=== PATIENT | female | born 1960 | race Two or more races ===

== ENCOUNTER 2018-10-18 08:10 | Inpatient (IN) | payer MEDICAID, OTHER ==
[~2018-10-18] VITALS: Ht 162.6 cm; Wt 74.8 kg
[2018-10-18] MEDS ORDERED: ONDANSETRON HCL 4MG/2ML INJ IV STA ×2 (10:34→13:29)
[2018-10-18] MEDS ORDERED: MORPHINE SULFATE 4 MG/ML CPJ (NOT FOR IM USE) IV STA ×2 (10:34→16:18)
[2018-10-18 11:31] LABS: BASOPHILS % 0.3 % (0.0-2.0); EOSINOPHILS % 0.1 % (0.0-5.0); HEMOGLOBIN. 13.4 g/dL (12.0-16.0); LYMPHOCYTES % 8.5 % (20.0-50.0); MEAN CORPUSCULAR VOLUME 85.5 fL (81.0-99.0); MEAN PLATELET VOLUME 10.1 fl (7.4-10.4); MONOCYTES % 2.4 % (2.0-8.0); NEUTROPHILS % 88.7 % (40.0-76.0); PLATELET 220 x1000/uL (130-400); RED CELL DISTRIBUTION WIDTH 13.6 % (11.6-14.6)
[2018-10-18 11:37] LABS: CHLORIDE 103 mEq/L (98-107)
[2018-10-18] MEDS ORDERED: IOHEXOL-300 100 ML BOTTLE ONE (12:36)
[2018-10-18] MEDS ORDERED: SODIUM CHLORIDE 0.9% 1,000 ML IV ONE (13:31)
[2018-10-18] MEDS ORDERED: FAMOTIDINE 20MG/2ML VIAL IV ONE (13:45)
[2018-10-18 14:35] LABS: CLARITY URINE CLEAR (CLEAR); COLOR URINE YELLOW (YELLOW); KETONES URINE 2+ (NEGATIVE); LEUKOCYTE ESTERASE URINE NEGATIVE (NEGATIVE); NITRITE URINE NEGATIVE (NEGATIVE); OCCULT BLOOD URINE 1+ (NEGATIVE); PROTEIN URINE NEGATIVE (NEGATIVE); SPECIFIC GRAVITY URINE 1.044 (1.005-1.030); UROBILINOGEN URINE 0.2 E.U./dL (0.2-1.0)
[2018-10-18] MEDS ORDERED: CLONIDINE 0.1MG TABLET PO PRN (21:15)
[2018-10-18] MEDS ORDERED: ONDANSETRON HCL 4MG/2ML INJ IV PRN (21:15)
[2018-10-18] MEDS ORDERED: DEXTROSE 50% WATER 50ML SYRINGE IV PRN (21:15)
[2018-10-18] MEDS ORDERED: ACETAMINOPHEN 325MG TABLET PO PRN (21:15)
[2018-10-18] MEDS: SODIUM CHLORIDE 0.9% 1,000 ML IV SCH (21:42)
[2018-10-19] MEDS: KETOROLAC 30MG/ML VIAL IV PRN ×4 (02:00→22:29)
[2018-10-19 06:00] LABS: BASOPHILS % 0.6 % (0.0-2.0); EOSINOPHILS % 0.9 % (0.0-5.0); HEMOGLOBIN. 12.2 g/dL (12.0-16.0); MEAN CORPUSCULAR HEMOGLOBIN 28.4 pg (28.0-32.0); MEAN CORPUSCULAR VOLUME 86.1 fL (81.0-99.0); MEAN PLATELET VOLUME 9.9 fl (7.4-10.4); MONOCYTES % 5.9 % (2.0-8.0); NEUTROPHILS % 69.6 % (40.0-76.0); PLATELET 172 x1000/uL (130-400); RED CELL DISTRIBUTION WIDTH 13.6 % (11.6-14.6)
[2018-10-19 06:06] LABS: CHLORIDE 106 mEq/L (98-107)
[2018-10-19] MEDS: LORAZEPAM 2MG/ML CPJ IV PRN (06:10)
[2018-10-19 08:00] VITALS: BP 161/68
[2018-10-19] MEDS: INSULIN LISPRO 100 UNITS/ML SUBCUT SCH ×4 (08:17→21:00)
[2018-10-19] MEDS: BLOOD SUGAR DIAGNOSTIC STRIP TEST SCH ×4 (08:17→21:00)
[2018-10-19] MEDS ORDERED: OMEP40CA34 MT (08:40)
[2018-10-19] MEDS ORDERED: LUBI8CAP MT (08:40)
[2018-10-19] MEDS: PANTOPRAZOLE SODIUM 40 MG/VIAL IV SCH (09:22)
[2018-10-19 11:27] VITALS: BP 161/68
[2018-10-19 12:00] VITALS: BP 134/59
[2018-10-19] MEDS: SODIUM CHLORIDE 0.9% 1,000 ML IV SCH (13:29)
[2018-10-19] MEDS ORDERED: DICYCLOMINE HCL 10MG/ML 2ML AMP IM NR (14:00)
[2018-10-19 16:00] VITALS: BP 129/70
[2018-10-19 20:00] VITALS: BP 119/62
[2018-10-19] MEDS ORDERED: TEMAZEPAM 15MG CAPSULE PO PRN (21:00)
[2018-10-20] VITALS: BP 129/50
[2018-10-20 04:00] VITALS: BP 135/63
[2018-10-20] MEDS: SODIUM CHLORIDE 0.9% 1,000 ML IV SCH ×2 (04:05→13:20)
[2018-10-20] MEDS: KETOROLAC 30MG/ML VIAL IV PRN ×2 (04:06→11:34)
[2018-10-20] MEDS: BLOOD SUGAR DIAGNOSTIC STRIP TEST SCH ×3 (06:50→17:08)
[2018-10-20] MEDS: INSULIN LISPRO 100 UNITS/ML SUBCUT SCH ×3 (06:50→17:02)
[2018-10-20 08:00] VITALS: BP 164/72
[2018-10-20] MEDS: LORAZEPAM 2MG/ML CPJ IV PRN ×2 (08:51→14:49)
[2018-10-20] MEDS: PANTOPRAZOLE SODIUM 40 MG/VIAL IV SCH (08:51)
[2018-10-20 12:00] VITALS: BP 143/58
[2018-10-20 15:24] VITALS: BP 144/63
[2018-10-20 16:00] VITALS: BP 147/65
[2018-10-21] MEDS ORDERED: FAMOTIDINE 20MG/2ML VIAL IV SCH (09:00)
[2018-10-21 15:06] LABS: ANTI-MYELOPEROXIDASE AB < 9.0 U/mL (0.0-9.0); ANTI-PROTEINASE 3 ABS < 3.5 U/mL (0.0-3.5)
[2018-10-23 13:06] LABS: ATYPICAL P-ANCA <1:20 titer (Neg:<1:20); CYTOPLASMIC C-ANCA <1:20 titer (Neg:<1:20); PERINUCLEAR P-ANCA <1:20 titer (Neg:<1:20)
== END 2018-10-20 18:10 | disposition home or self-care (01) | DRG 254 ==
LOC: ER 08:38 → 6EST 14:40 → EDBEDREQ 14:47 → ENRESERV 10-19 07:18
PROVIDERS: ADMIT Internal Medicine; ATTEND Internal Medicine
DX: K58.0 Irritable bowel syndrome with diarrhea (principal); R65.10 Systemic inflammatory response syndrome (SIRS) of non-infectious origin without acute organ dysfunction; E11.65 Type 2 diabetes mellitus with hyperglycemia; E87.1 Hypo-osmolality and hyponatremia; K83.8 Other specified diseases of biliary tract; E86.0 Dehydration; I10 Essential (primary) hypertension; Z72.0 Tobacco use; I25.2 Old myocardial infarction; Z90.49 Acquired absence of other specified parts of digestive tract; Z98.51 Tubal ligation status; Z98.49 Cataract extraction status, unspecified eye
CPT/HCPCS: 36415; 71045; 74177; 74181; 82962; 83036; 83520; 83880; 84484; 86256; 93005; 93970; 96374; 96375; 99285; C9113; J0500; J1815; J1885; J2060; J2270; J2405; J3490; Q9967

== ENCOUNTER 2018-11-03 05:09 | Emergency (ER) | payer MEDICAID ==
[~2018-11-03] VITALS: Ht 162.6 cm; Wt 69.0 kg
[~2018-11-03 05:09] MED LIST: LUBI8CAP MT; OMEP40CA34 MT
[2018-11-03] MEDS ORDERED: SODIUM CHLORIDE 0.9% 1,000 ML IV ONE (06:29)
[2018-11-03] MEDS ORDERED: ONDANSETRON HCL 4MG/2ML INJ IV STA (06:29)
[2018-11-03] MEDS ORDERED: MORPHINE SULFATE 4 MG/ML CPJ (NOT FOR IM USE) IV STA (06:29)
[2018-11-03] MEDS ORDERED: LORAZEPAM 2MG/ML CPJ IV ONE ×2 (06:30→08:45)
[2018-11-03] MEDS ORDERED: FAMOTIDINE 20MG/2ML VIAL IV ONE (06:30)
[2018-11-03 07:30] LABS: BASOPHILS % 0.6 % (0.0-2.0); EOSINOPHILS % 0.3 % (0.0-5.0); HEMATOCRIT. 41.1 % (36.0-48.0); HEMOGLOBIN. 13.6 g/dL (12.0-16.0); LYMPHOCYTES % 9.2 % (20.0-50.0); MEAN CORPUSCULAR HEMOGLOBIN 28.6 pg (28.0-32.0); MEAN CORPUSCULAR VOLUME 86.4 fL (81.0-99.0); MEAN PLATELET VOLUME 9.7 fl (7.4-10.4); MONOCYTES % 2.8 % (2.0-8.0); NEUTROPHILS % 87.1 % (40.0-76.0); PLATELET 216 x1000/uL (130-400); RED BLOOD CELL COUNT 4.76 mill/uL (4.2-5.4); RED CELL DISTRIBUTION WIDTH 13.8 % (11.6-14.6)
[2018-11-03 07:34] LABS: CHLORIDE 101 mEq/L (98-107)
[2018-11-03 07:35] LABS: PROTHROMBIN TIME 9.8 sec (9.1-11.1)
[2018-11-03] MEDS ORDERED: KETOROLAC 30MG/ML VIAL IV ONE (08:45)
[2018-11-03 09:42] LABS: CLARITY URINE CLEAR (CLEAR); COLOR URINE YELLOW (YELLOW); KETONES URINE 1+ (NEGATIVE); LEUKOCYTE ESTERASE URINE NEGATIVE (NEGATIVE); NITRITE URINE NEGATIVE (NEGATIVE); OCCULT BLOOD URINE TRACE (NEGATIVE); PROTEIN URINE NEGATIVE (NEGATIVE); UROBILINOGEN URINE 0.2 E.U./dL (0.2-1.0)
[2018-11-03 11:04] LABS: BG BASE EXCESS -0.9 mmol/L (-2.0-2.0); BG CARBOXYHEMOGLOBIN 0.8 % (0.5-1.5); BG DEOXYHEMOGLOBIN 1.6 % (0.0-5.0); BG FRACTION INSPIRED OXYGEN 28; BG HCO3 ACT 22.2 mmol/L (22.0-26.0); BG METHEMOGLOBIN 0.3 % (0.0-1.5); BG OXYGEN SATURATION 98.4 % (92.0-98.5); BG OXYHEMOGLOBIN 97.3 % (94.0-97.0); BG PCO2 31.7 mmHg (35.0-45.0); BG PH 7.463 (7.350-7.450); BG PO2 128.5 mmHg (75.0-100.0); BG SAMPLE SITE RIGHT BRACHIAL; BG TOTAL HEMOGLOBIN 11.9 g/dL (12.0-18.0); BG VENT MODE NASAL CANNULA
[2018-11-03 13:00] VITALS: BP 145/85
[2019-01-07] MEDS ORDERED: MORPHINE SULFATE 4 MG/ML CPJ (NOT FOR IM USE) IV STA (08:03)
[2019-01-07] MEDS ORDERED: ONDANSETRON HCL 4MG/2ML INJ IV STA (08:03)
[2019-01-07] MEDS ORDERED: SODIUM CHLORIDE 0.9% 1,000 ML IV ONE (08:03)
== END 2018-11-03 13:31 | disposition home or self-care (01) ==
LOC: ER 05:09
DX: R10.9 Unspecified abdominal pain (principal); R11.2 Nausea with vomiting, unspecified; E11.9 Type 2 diabetes mellitus without complications; I10 Essential (primary) hypertension; F17.200 Nicotine dependence, unspecified, uncomplicated; Z87.19 Personal history of other diseases of the digestive system; Z88.0 Allergy status to penicillin; Z79.899 Other long term (current) drug therapy
CPT/HCPCS: 36415; 36600; 71045; 74176; 80053; 81003; 82375; 82805; 83690; 84484; 85025; 85610; 93005; 96361; 96374; 96375; 96376; 99284; J1885; J2060; J2270; J2405; J3490; J7030; Z7610

== ENCOUNTER 2019-01-07 07:15 | Inpatient (IN) | payer MEDICAID ==
[~2019-01-07] VITALS: Ht 157.5 cm; Wt 70.3 kg
[2019-01-07] MEDS ORDERED: ONDANSETRON HCL 4MG/2ML INJ IV STA (08:06)
[2019-01-07] MEDS ORDERED: MORPHINE SULFATE 4 MG/ML CPJ (NOT FOR IM USE) IV STA (08:06)
[2019-01-07] MEDS ORDERED: SODIUM CHLORIDE 0.9% 1,000 ML IV ONE (08:06)
[2019-01-07] MEDS ORDERED: KETOROLAC 30MG/ML VIAL IV STA (08:06)
[2019-01-07 08:34] LABS: BASOPHILS % 0.8 % (0.0-2.0); EOSINOPHILS % 0.4 % (0.0-5.0); HEMATOCRIT. 40.1 % (36.0-48.0); HEMOGLOBIN. 13.3 g/dL (12.0-16.0); LYMPHOCYTES % 10.8 % (20.0-50.0); MEAN CORPUSCULAR HEMOGLOBIN 28.5 pg (28.0-32.0); MEAN PLATELET VOLUME 9.9 fl (7.4-10.4); MONOCYTES % 2.5 % (2.0-8.0); NEUTROPHILS % 85.5 % (40.0-76.0); PLATELET 183 x1000/uL (130-400); RED BLOOD CELL COUNT 4.67 mill/uL (4.2-5.4); RED CELL DISTRIBUTION WIDTH 13.8 % (11.6-14.6)
[2019-01-07 08:41] LABS: CHLORIDE 104 mEq/L (98-107)
[2019-01-07 10:09] LABS: CLARITY URINE CLEAR (CLEAR); COLOR URINE YELLOW (YELLOW); KETONES URINE 1+ (NEGATIVE); LEUKOCYTE ESTERASE URINE NEGATIVE (NEGATIVE); NITRITE URINE NEGATIVE (NEGATIVE); OCCULT BLOOD URINE TRACE (NEGATIVE); PROTEIN URINE NEGATIVE (NEGATIVE); SPECIFIC GRAVITY URINE 1.015 (1.005-1.030); UROBILINOGEN URINE 0.2 E.U./dL (0.2-1.0)
[2019-01-07] MEDS ORDERED: METOCLOPRAMIDE HCL 10MG/2ML VIAL IV ONE (13:00)
[2019-01-07] MEDS ORDERED: FENTANYL CITRATE/PF 50MCG/ML 2ML VIAL IV ONE (13:00)
[2019-01-07] MEDS ORDERED: ACETAMINOPHEN 325MG TABLET PO PRN ×2 (16:45)
[2019-01-07] MEDS ORDERED: DEXTROSE 50% WATER 50ML SYRINGE IV PRN (16:45)
[2019-01-07] MEDS ORDERED: ONDANSETRON HCL 4MG/2ML INJ IV PRN (16:45)
[2019-01-07] MEDS ORDERED: CLONIDINE 0.1MG TABLET PO PRN (16:45)
[2019-01-07] MEDS: KETOROLAC 30MG/ML VIAL IV PRN (17:38)
[2019-01-07 20:00] VITALS: BP_SYST 122; BP_SYST 154; BP_DIAS 66; BP_DIAS 78
[2019-01-07] MEDS: BLOOD SUGAR DIAGNOSTIC STRIP TEST SCH (21:00)
[2019-01-07] MEDS: METOCLOPRAMIDE HCL 10MG/2ML VIAL IV SCH (21:07)
[2019-01-07] MEDS: INSULIN LISPRO 100 UNITS/ML SUBCUT SCH (21:37)
[2019-01-08] VITALS: BP 108/58
[2019-01-08] MEDS: KETOROLAC 30MG/ML VIAL IV PRN (00:42)
[2019-01-08] MEDS: METOCLOPRAMIDE HCL 10MG/2ML VIAL IV SCH ×3 (03:53→23:41)
[2019-01-08 04:00] VITALS: BP 145/69
[2019-01-08] MEDS: SODIUM CHLORIDE 0.9% 1,000 ML IV SCH ×2 (05:02→21:19)
[2019-01-08 07:12] LABS: BASOPHILS % 0.3 % (0.0-2.0); HEMATOCRIT. 38.4 % (36.0-48.0); HEMOGLOBIN. 12.8 g/dL (12.0-16.0); LYMPHOCYTES % 10.3 % (20.0-50.0); MEAN CORPUSCULAR HEMOGLOBIN 28.8 pg (28.0-32.0); MEAN CORPUSCULAR VOLUME 86.2 fL (81.0-99.0); MEAN PLATELET VOLUME 10.3 fl (7.4-10.4); MONOCYTES % 4.1 % (2.0-8.0); NEUTROPHILS % 85.3 % (40.0-76.0); PLATELET 182 x1000/uL (130-400); RED BLOOD CELL COUNT 4.46 mill/uL (4.2-5.4); RED CELL DISTRIBUTION WIDTH 13.6 % (11.6-14.6)
[2019-01-08 08:00] VITALS: BP 153/87
[2019-01-08] MEDS: PANTOPRAZOLE SODIUM 40 MG/VIAL IV SCH ×2 (08:29→21:18)
[2019-01-08] MEDS: MORPHINE SULFATE 4 MG/ML CPJ (NOT FOR IM USE) IV PRN ×2 (08:29→17:42)
[2019-01-08] MEDS: INSULIN LISPRO 100 UNITS/ML SUBCUT SCH ×4 (09:43→21:41)
[2019-01-08] MEDS: SUCRALFATE 1G TABLET PO SCH ×3 (11:28→21:18)
[2019-01-08] MEDS: HYDROCODONE/ACETAMINOPHEN 5/325MG TABLET PO PRN ×2 (11:31→21:18)
[2019-01-08] MEDS: BLOOD SUGAR DIAGNOSTIC STRIP TEST SCH ×3 (11:32→21:19)
[2019-01-08 12:00] VITALS: BP 146/75
[2019-01-08 13:16] LABS: *AMPHETAMINES SCREEN URINE NEGATIVE (NEGATIVE); *BARBITURATES SCREEN URINE NEGATIVE (NEGATIVE); *BENZODIAZEPINES SCREEN URINE NEGATIVE (NEGATIVE); *COCAINE SCREEN URINE NEGATIVE (NEGATIVE); METHADONE URINE SCREEN NEGATIVE (NEGATIVE); OPIATES URINE SCREEN PRESUMTIVE POSITIVE (NEGATIVE)
[2019-01-08 13:17] LABS: CANNABINOID URINE SCREEN PRESUMTIVE POSITIVE (NEGATIVE); PHENCYCLIDINE URINE SCREEN NEGATIVE (NEGATIVE)
[2019-01-08] MEDS: NICOTINE 14MG PATCH TD SCH (13:32)
[2019-01-08 16:00] VITALS: BP 116/60
[2019-01-08 20:00] VITALS: BP 135/66
[2019-01-09] VITALS: BP 116/52
[2019-01-09 04:00] VITALS: BP 138/50
[2019-01-09] MEDS: HYDROCODONE/ACETAMINOPHEN 5/325MG TABLET PO PRN ×3 (04:20→20:41)
[2019-01-09] MEDS: METOCLOPRAMIDE HCL 10MG/2ML VIAL IV SCH ×4 (06:22→23:45)
[2019-01-09] MEDS: SUCRALFATE 1G TABLET PO SCH ×3 (06:23→17:45)
[2019-01-09] MEDS: BLOOD SUGAR DIAGNOSTIC STRIP TEST SCH ×4 (06:37→20:50)
[2019-01-09 07:19] LABS: BASOPHILS % 0.5 % (0.0-2.0); EOSINOPHILS % 0.8 % (0.0-5.0); HEMATOCRIT. 36.2 % (36.0-48.0); HEMOGLOBIN. 12.2 g/dL (12.0-16.0); LYMPHOCYTES % 27.7 % (20.0-50.0); MEAN CORPUSCULAR HEMOGLOBIN 29.3 pg (28.0-32.0); MEAN CORPUSCULAR VOLUME 86.8 fL (81.0-99.0); MEAN PLATELET VOLUME 10.1 fl (7.4-10.4); MONOCYTES % 6.3 % (2.0-8.0); NEUTROPHILS % 64.7 % (40.0-76.0); PLATELET 166 x1000/uL (130-400); RED BLOOD CELL COUNT 4.17 mill/uL (4.2-5.4); RED CELL DISTRIBUTION WIDTH 13.9 % (11.6-14.6)
[2019-01-09] MEDS: INSULIN LISPRO 100 UNITS/ML SUBCUT SCH ×4 (07:50→21:01)
[2019-01-09 08:00] VITALS: BP 135/54
[2019-01-09] MEDS: PANTOPRAZOLE SODIUM 40 MG/VIAL IV SCH ×2 (08:22→20:41)
[2019-01-09] MEDS: NICOTINE 14MG PATCH TD SCH (08:23)
[2019-01-09] MEDS: MORPHINE SULFATE 4 MG/ML CPJ (NOT FOR IM USE) IV PRN ×2 (08:23→16:07)
[2019-01-09] MEDS ORDERED: DIATR MEGLU/DIATRIZOATE SOLN 30ML PO SCH (09:00)
[2019-01-09 11:47] VITALS: BP 102/53
[2019-01-09] MEDS ORDERED: POTASSIUM CHLORIDE 20MEQ TABLET SR PO SCH (14:30)
[2019-01-09] MEDS ORDERED: IOHEXOL-300 100 ML BOTTLE ONE (15:06)
[2019-01-09 16:00] VITALS: BP 131/63
[2019-01-09 20:00] VITALS: BP 121/55
[2019-01-10] VITALS (7 sets, daily range): BP systolic 111–151; BP diastolic 56–73
[2019-01-10] MEDS: SUCRALFATE 1G TABLET PO SCH ×3 (06:05→13:53)
[2019-01-10] MEDS: METOCLOPRAMIDE HCL 10MG/2ML VIAL IV SCH ×2 (06:05→13:53)
[2019-01-10] MEDS: SODIUM CHLORIDE 0.9% 1,000 ML IV SCH (06:06)
[2019-01-10] MEDS: HYDROCODONE/ACETAMINOPHEN 5/325MG TABLET PO PRN ×2 (06:25→13:47)
[2019-01-10] MEDS: BLOOD SUGAR DIAGNOSTIC STRIP TEST SCH ×2 (06:46→13:36)
[2019-01-10 07:09] LABS: BASOPHILS % 1.1 % (0.0-2.0); EOSINOPHILS % 2.7 % (0.0-5.0); HEMATOCRIT. 34.7 % (36.0-48.0); HEMOGLOBIN. 11.7 g/dL (12.0-16.0); LYMPHOCYTES % 27.6 % (20.0-50.0); MEAN CORPUSCULAR VOLUME 86.5 fL (81.0-99.0); MEAN PLATELET VOLUME 10.2 fl (7.4-10.4); NEUTROPHILS % 60.6 % (40.0-76.0); PLATELET 153 x1000/uL (130-400); RED BLOOD CELL COUNT 4.02 mill/uL (4.2-5.4); RED CELL DISTRIBUTION WIDTH 13.8 % (11.6-14.6)
[2019-01-10] MEDS: INSULIN LISPRO 100 UNITS/ML SUBCUT SCH ×2 (07:50→12:50)
[2019-01-10] MEDS: NICOTINE 14MG PATCH TD SCH (08:42)
[2019-01-10] MEDS: PANTOPRAZOLE SODIUM 40 MG/VIAL IV SCH (08:42)
== END 2019-01-10 17:51 | disposition home or self-care (01) | DRG 254 ==
LOC: ER 07:15 → 6EST 13:35 → ENRESERV 14:34 → 6EST 22:53
PROVIDERS: ADMIT Internal Medicine; ATTEND Internal Medicine
DX: K58.0 Irritable bowel syndrome with diarrhea (principal); K92.0 Hematemesis; K58.1 Irritable bowel syndrome with constipation; E78.5 Hyperlipidemia, unspecified; I10 Essential (primary) hypertension; F17.210 Nicotine dependence, cigarettes, uncomplicated; F14.90 Cocaine use, unspecified, uncomplicated; E11.9 Type 2 diabetes mellitus without complications; I25.2 Old myocardial infarction; Z79.84 Long term (current) use of oral hypoglycemic drugs; Z90.49 Acquired absence of other specified parts of digestive tract; Z98.49 Cataract extraction status, unspecified eye; Z88.0 Allergy status to penicillin
CPT/HCPCS: 36415; 74021; 74177; 80048; 80061; 80305; 82270; 82728; 82962; 83036; 83540; 83550; 83605; 83735; 84100; 84443; 84484; 93970; 96374; 96375; 99285; C1893; C9113; J1815; J1885; J2270; J2405; J2765; J3010; Q9963; Q9967

== ENCOUNTER 2019-02-16 15:21 | Emergency (ER) | payer MEDICAID ==
[~2019-02-16] VITALS: Ht 160 cm; Wt 51.0 kg
[2019-02-16] MEDS ORDERED: ONDANSETRON HCL 4MG/2ML INJ IV STA (15:42)
[2019-02-16] MEDS ORDERED: SODIUM CHLORIDE 0.9% 1,000 ML IV ONE (15:42)
[2019-02-16] MEDS ORDERED: DICYCLOMINE HCL 10MG/ML 2ML AMP IM ONE (15:45)
[2019-02-16 16:07] LABS: BASOPHILS % 0.8 % (0.0-2.0); EOSINOPHILS % 0.9 % (0.0-5.0); HEMATOCRIT. 40.2 % (36.0-48.0); HEMOGLOBIN. 13.3 g/dL (12.0-16.0); MEAN CORPUSCULAR HEMOGLOBIN 28.8 pg (28.0-32.0); MEAN CORPUSCULAR VOLUME 86.7 fL (81.0-99.0); MEAN PLATELET VOLUME 9.8 fl (7.4-10.4); MONOCYTES % 5.8 % (2.0-8.0); NEUTROPHILS % 75.5 % (40.0-76.0); PLATELET 181 x1000/uL (130-400); RED BLOOD CELL COUNT 4.63 mill/uL (4.2-5.4); RED CELL DISTRIBUTION WIDTH 13.7 % (11.6-14.6)
[2019-02-16 16:12] LABS: CHLORIDE 104 mEq/L (98-107)
[2019-02-16] MEDS ORDERED: FAMOTIDINE 20MG/2ML VIAL IV NR (16:18)
[2019-02-16] MEDS ORDERED: VISCOUS LIDOCAINE 2% 15 ML UDC PO NR (16:18)
[2019-02-16] MEDS ORDERED: MAGNESIUM/ALUMINUM HYDROXIDE/SIMETHICONE 30ML UDC PO NR (16:18)
[2019-02-16] MEDS ORDERED: DIPHENHYDRAMINE 50MG/ML VIAL IV NR (16:30)
[2019-02-16 18:00] VITALS: BP 148/67
== END 2019-02-16 19:00 | disposition home or self-care (01) ==
LOC: ER 15:21
DX: K58.9 Irritable bowel syndrome, unspecified (principal); R11.2 Nausea with vomiting, unspecified; K59.00 Constipation, unspecified; I10 Essential (primary) hypertension; E11.9 Type 2 diabetes mellitus without complications; Z88.0 Allergy status to penicillin; Z79.899 Other long term (current) drug therapy
CPT/HCPCS: 36415; 80053; 83690; 85025; 85610; 96361; 96372; 96374; 96375; 99283; J0500; J1200; J2405; J3490; J7030; Z7610

== ENCOUNTER 2019-02-16 22:14 | Inpatient (IN) | payer MEDICAID ==
[~2019-02-16] VITALS: Ht 157.5 cm; Wt 79.4 kg
[2019-02-17] MEDS ORDERED: FAMOTIDINE 20MG/2ML VIAL IV STA (03:53)
[2019-02-17] MEDS ORDERED: SODIUM CHLORIDE 0.9% 1,000 ML IV ONE (03:53)
[2019-02-17] MEDS ORDERED: ONDANSETRON HCL 4MG/2ML INJ IV STA (03:53)
[2019-02-17] MEDS ORDERED: VISCOUS LIDOCAINE 2% 15 ML UDC MM STA (03:56)
[2019-02-17] MEDS ORDERED: DICYCLOMINE HCL 20MG TABLET PO SCH (04:00)
[2019-02-17] MEDS ORDERED: MAGNESIUM/ALUMINUM HYDROXIDE/SIMETHICONE 30ML UDC PO ONE (04:00)
[2019-02-17] MEDS ORDERED: MORPHINE SULFATE 2 MG/ML CPJ (NOT FOR IM USE) IV ONE (04:00)
[2019-02-17 04:03] LABS: BASOPHILS % 0.6 % (0.0-2.0); EOSINOPHILS % 0.1 % (0.0-5.0); HEMATOCRIT. 42.9 % (36.0-48.0); HEMOGLOBIN. 14.1 g/dL (12.0-16.0); LYMPHOCYTES % 9.5 % (20.0-50.0); MEAN CORPUSCULAR HEMOGLOBIN 29.1 pg (28.0-32.0); MEAN CORPUSCULAR VOLUME 88.7 fL (81.0-99.0); MEAN PLATELET VOLUME 10.9 fl (7.4-10.4); MONOCYTES % 2.5 % (2.0-8.0); NEUTROPHILS % 87.3 % (40.0-76.0); PLATELET 186 x1000/uL (130-400); RED BLOOD CELL COUNT 4.84 mill/uL (4.2-5.4); RED CELL DISTRIBUTION WIDTH 13.8 % (11.6-14.6)
[2019-02-17 04:07] LABS: PROTHROMBIN TIME 10.3 sec (9.6-11.0)
[2019-02-17 04:14] LABS: CHLORIDE 101 mEq/L (98-107)
[2019-02-17 04:19] LABS: C REACTIVE PROTEIN QUANT 1.3 mg/L (0.0-3.0)
[2019-02-17] MEDS ORDERED: HYDROMORPHONE HCL/PF 2MG/ML CPJ IV ONE (04:30)
[2019-02-17] MEDS ORDERED: DIATR MEGLU/DIATRIZOATE SOLN 30ML PO ONE (04:30)
[2019-02-17] MEDS ORDERED: SODIUM CHLORIDE 0.9% 1000ML BAG (SEPSIS BOLUS) IV ONE (04:45)
[2019-02-17] MEDS ORDERED: LEVOFLOXACIN 750MG PREMIX 150 ML IV ONE (04:45)
[2019-02-17] MEDS ORDERED: METRONIDAZOLE 500 MG PREMIX 100 ML IV ONE (04:45)
[2019-02-17 05:56] LABS: CLARITY URINE CLEAR (CLEAR); COLOR URINE YELLOW (YELLOW); KETONES URINE 3+ (NEGATIVE); LEUKOCYTE ESTERASE URINE NEGATIVE (NEGATIVE); NITRITE URINE NEGATIVE (NEGATIVE); OCCULT BLOOD URINE TRACE (NEGATIVE); PH URINE 6.5 (4.5-8.0); PROTEIN URINE NEGATIVE (NEGATIVE); SPECIFIC GRAVITY URINE 1.014 (1.005-1.030); UROBILINOGEN URINE 0.2 E.U./dL (0.2-1.0)
[2019-02-17] MEDS ORDERED: IOHEXOL-300 100 ML BOTTLE ONE (06:49)
[2019-02-17 08:00] VITALS: BP 144/57
[2019-02-17 08:40] VITALS: BP 144/57
[2019-02-17] MEDS ORDERED: LORAZEPAM 0.5MG TABLET PO PRN (09:15)
[2019-02-17] MEDS ORDERED: GUAIFENESIN 200MG/10ML SUGAR FREE UDC PO PRN (09:15)
[2019-02-17] MEDS ORDERED: IPRATROPIUM/ALBUTEROL 0.5-3(2.5)MG/3ML NEB INH PRN (09:15)
[2019-02-17] MEDS ORDERED: NITROGLYCERIN 0.4MG TABLET SL SL PRN (09:15)
[2019-02-17] MEDS ORDERED: MAGNESIUM/ALUMINUM HYDROXIDE/SIMETHICONE 30ML UDC PO PRN (09:15)
[2019-02-17] MEDS ORDERED: ZOLPIDEM TARTRATE 5MG TABLET PO PRN (09:15)
[2019-02-17] MEDS ORDERED: ONDANSETRON HCL 4MG/2ML INJ IV PRN (09:15)
[2019-02-17] MEDS ORDERED: CLONIDINE 0.1MG TABLET PO PRN (09:15)
[2019-02-17] MEDS ORDERED: ACETAMINOPHEN 325MG TABLET PO PRN (09:15)
[2019-02-17] MEDS ORDERED: DOCUSATE SODIUM 100MG CAPSULE PO PRN (09:15)
[2019-02-17] MEDS: KETOROLAC 15MG/ML VIAL IV PRN ×2 (10:22→18:56)
[2019-02-17] MEDS: SODIUM CHLORIDE 0.9% 1,000 ML IV SCH ×2 (10:25→21:09)
[2019-02-17] MEDS: ENOXAPARIN 40MG/0.4ML SYR SUBCUT SCH (10:26)
[2019-02-17 12:00] VITALS: BP 126/68
[2019-02-17] MEDS: METOCLOPRAMIDE 10MG/10 ML UDC PO SCH ×3 (13:24→21:09)
[2019-02-17] MEDS: SUCRALFATE 1 G/10 ML UDC PO SCH ×3 (13:24→21:08)
[2019-02-17] MEDS ORDERED: DEXTROSE 50% WATER 50ML SYRINGE IV PRN (13:45)
[2019-02-17 14:48] LABS: *AMPHETAMINES SCREEN URINE NEGATIVE (NEGATIVE); *BARBITURATES SCREEN URINE NEGATIVE (NEGATIVE); *BENZODIAZEPINES SCREEN URINE NEGATIVE (NEGATIVE)
[2019-02-17 14:49] LABS: *COCAINE SCREEN URINE NEGATIVE (NEGATIVE); CANNABINOID URINE SCREEN PRESUMTIVE POSITIVE (NEGATIVE); METHADONE URINE SCREEN NEGATIVE (NEGATIVE); OPIATES URINE SCREEN PRESUMTIVE POSITIVE (NEGATIVE); PHENCYCLIDINE URINE SCREEN NEGATIVE (NEGATIVE)
[2019-02-17 16:00] VITALS: BP 136/63
[2019-02-17] MEDS: BLOOD SUGAR DIAGNOSTIC STRIP TEST SCH ×2 (16:26→21:07)
[2019-02-17] MEDS: INSULIN LISPRO 100 UNITS/ML SUBCUT SCH ×2 (17:15→21:00)
[2019-02-17] MEDS: PANTOPRAZOLE 40MG DR TABLET PO SCH (18:55)
[2019-02-17 20:00] VITALS: BP 129/62
[2019-02-18] VITALS: BP 124/56
[2019-02-18 04:00] VITALS: BP 165/89
[2019-02-18] MEDS: METOCLOPRAMIDE 10MG/10 ML UDC PO SCH ×2 (05:14→11:45)
[2019-02-18] MEDS: SUCRALFATE 1 G/10 ML UDC PO SCH ×2 (05:14→11:45)
[2019-02-18] MEDS: INSULIN LISPRO 100 UNITS/ML SUBCUT SCH ×2 (05:14→12:15)
[2019-02-18] MEDS: BLOOD SUGAR DIAGNOSTIC STRIP TEST SCH ×2 (05:14→11:53)
[2019-02-18] MEDS: PANTOPRAZOLE 40MG DR TABLET PO SCH (06:18)
[2019-02-18] MEDS ORDERED: PANTOPRAZOLE 40MG DR TABLET PO SCH (06:45)
[2019-02-18 08:00] VITALS: BP 134/63
[2019-02-18] MEDS: KETOROLAC 15MG/ML VIAL IV PRN (08:20)
[2019-02-18] MEDS: ENOXAPARIN 40MG/0.4ML SYR SUBCUT SCH (08:20)
[2019-02-18 12:00] VITALS: BP 160/76
[2019-02-18 14:55] VITALS: BP 135/58
== END 2019-02-18 15:50 | disposition home or self-care (01) | DRG 241 ==
LOC: ER 22:14 → EDBEDREQSVC 02-17 05:12 → EDBEDREQTM 02-17 05:12 → EDBEDREQ 02-17 05:12 → ENRESERV 02-17 07:55 → CANRESERV 02-17 07:55 → ENRESERV 02-17 07:56 → 5WST 02-17 08:27
PROVIDERS: ADMIT Internal Medicine; ATTEND Internal Medicine
DX: K29.70 Gastritis, unspecified, without bleeding (principal); K31.84 Gastroparesis; E11.43 Type 2 diabetes mellitus with diabetic autonomic (poly)neuropathy; E11.65 Type 2 diabetes mellitus with hyperglycemia; F12.10 Cannabis abuse, uncomplicated; K58.9 Irritable bowel syndrome, unspecified; F14.10 Cocaine abuse, uncomplicated; F17.210 Nicotine dependence, cigarettes, uncomplicated; I10 Essential (primary) hypertension; Z76.5 Malingerer [conscious simulation]; Z90.49 Acquired absence of other specified parts of digestive tract; Z71.6 Tobacco abuse counseling; Z88.0 Allergy status to penicillin
CPT/HCPCS: 36415; 74177; 80305; 82962; 83036; 83605; 84484; 86140; 86850; 86900; 93005; 93970; 96361; 96365; 96366; 96367; 96375; 99285; J1170; J1650; J1885; J1956; J2270; J2405; J3490; J7030; J8597; Q9963; Q9967

== ENCOUNTER 2021-06-04 14:48 | Emergency (ER) | payer MEDICAID ==
[~2021-06-04] VITALS: Ht 167.6 cm; Wt 55.0 kg
[~2021-06-04 14:48] MED LIST changes: +METO-293 MT; +OMEP40CA12 MT; -OMEP40CA34 MT
[2021-06-04] MEDS ORDERED: ACETAMINOPHEN 325MG TABLET PO STA (15:43)
[2021-06-04 16:03] LABS: EOSINOPHILS % 2.5 % (0.0-5.0); HEMATOCRIT. 28.9 % (36.0-48.0); HEMOGLOBIN. 9.8 g/dL (12.0-16.0); LYMPHOCYTES % 33.7 % (20.0-50.0); MEAN CORPUSCULAR HEMOGLOBIN 27.5 pg (28.0-32.0); MEAN CORPUSCULAR VOLUME 81.1 fL (81.0-99.0); MEAN PLATELET VOLUME 8.9 fl (7.4-10.4); MONOCYTES % 7.5 % (2.0-8.0); NEUTROPHILS % 55.3 % (40.0-76.0); PLATELET 207 x1000/uL (130-400); RED BLOOD CELL COUNT 3.57 mill/uL (4.2-5.4); RED CELL DISTRIBUTION WIDTH 16.3 % (11.6-14.6)
[2021-06-04 16:13] LABS: CHLORIDE 99 mEq/L (98-107)
[2021-06-04] MEDS ORDERED: HYDROCODONE/ACETAMINOPHEN 10/325MG TABLET PO ONE (16:30)
[2021-06-04] MEDS ORDERED: GABAPENTIN 300MG CAPSULE PO SCH (16:30)
[2021-06-04 17:45] LABS: CLARITY URINE CLEAR (CLEAR); COLOR URINE YELLOW (YELLOW); KETONES URINE NEGATIVE (NEGATIVE); LEUKOCYTE ESTERASE URINE TRACE (NEGATIVE); NITRITE URINE NEGATIVE (NEGATIVE); OCCULT BLOOD URINE NEGATIVE (NEGATIVE); PROTEIN URINE NEGATIVE (NEGATIVE); SPECIFIC GRAVITY URINE 1.013 (1.005-1.030); UROBILINOGEN URINE 0.2 E.U./dL (0.2-1.0)
[2021-06-04] MEDS ORDERED: GABA-532 MT (17:59)
[2021-06-04 18:00] VITALS: BP 154/76
[2021-06-04 18:03] LABS: INR 0.9; PROTHROMBIN TIME 10.2 sec (9.6-11.0)
[2021-06-19] MEDS ORDERED: OMEP40CA12 MT (15:00)
[2021-06-19] MEDS ORDERED: METF-414 MT (15:00)
== END 2021-06-04 18:11 | disposition home or self-care (01) ==
LOC: ER 14:48
DX: M62.838 Other muscle spasm (principal); E87.1 Hypo-osmolality and hyponatremia; F17.210 Nicotine dependence, cigarettes, uncomplicated; D64.9 Anemia, unspecified; Z71.6 Tobacco abuse counseling; Z87.11 Personal history of peptic ulcer disease; Z88.0 Allergy status to penicillin
CPT/HCPCS: 36415; 80053; 81003; 84484; 85025; 93005; 99284; 99406

== ENCOUNTER 2025-02-21 10:00 | Emergency (ER) | payer BC, MEDICAID ==
[~2025-02-21] VITALS: Ht 162.6 cm; Wt 55.0 kg
[~2025-02-21 10:00] MED LIST changes: +ASPI-1160 PO; +EMPA10TA PO; +ERGO1250 PO; +GABA-1180 PO; +LEVO750T68 MT; -LUBI8CAP MT; -METO-293 MT; -OMEP40CA12 MT
[2025-02-21 10:02] VITALS: O2SAT 98
[2025-02-21] MEDS: SODIUM CHLORIDE 0.9% 1,000 ML IV ONE (10:15)
[2025-02-21] MEDS: ONDANSETRON HCL 4MG/2ML INJ IV STA (11:19)
[2025-02-21] MEDS: MORPHINE SULFATE 4 MG/ML INJ (FOR IV/IM USE) IV STA (11:19)
[2025-02-21 11:31] LABS: BASOPHILS % 1.6 % (0.0-2.0); DIFFERENTIAL COMMENT 0; EOSINOPHILS % 4.2 % (0.0-5.0); HEMATOCRIT. 35.7 % (36.0-48.0); HEMOGLOBIN. 11.6 g/dL (12.0-16.0); LYMPHOCYTES % 23.1 % (20.0-50.0); MEAN CORPUSCULAR HEMOGLOBIN 25.9 pg (28.0-32.0); MEAN CORPUSCULAR HGB CONC 32.5 g/dL (31.0-37.0); MEAN CORPUSCULAR VOLUME 79.5 fL (81.0-99.0); MEAN PLATELET VOLUME 8.8 fl (7.4-10.4); MONOCYTES % 5.8 % (2.0-8.0); NEUTROPHILS % 65.3 % (40.0-76.0); PLATELET 215 x1000/uL (130-400); RED BLOOD CELL COUNT 4.49 mill/uL (4.2-5.4); RED CELL DISTRIBUTION WIDTH 17.7 % (11.6-14.6); WHITE BLOOD COUNT 7.2 x1000/uL (4.5-11.0)
[2025-02-21 11:41] LABS: PROTHROMBIN TIME 10.3 sec (9.6-11.0)
[2025-02-21 12:03] LABS: CHLORIDE 104 mEq/L (98-107); POTASSIUM 4.2 mEq/L (3.5-5.1); SODIUM 136 mEq/L (136-145)
[2025-02-21 12:04] LABS: CALCIUM 8.8 mg/dL (8.7-10.4); CARBON DIOXIDE 24 mEq/L (21-32)
[2025-02-21 12:09] LABS: GLUCOSE 121 mg/dL (70-105)
[2025-02-21 12:10] LABS: TROPONIN I HIGH SENSITIVITY 4 ng/L (3.0-34); UREA NITROGEN BLOOD 10 mg/dL (9-23)
[2025-02-21 12:11] LABS: ALANINE AMINOTRANSFERASE < 7 IU/L (10-49); ALBUMIN 4.3 g/dL (3.2-4.8); ASPARTATE AMINOTRANSFERASE 12 IU/L (<34); BILIRUBIN DIRECT 0.1 mg/dL (<=3.0)
[2025-02-21 12:12] LABS: BILIRUBIN TOTAL 0.4 mg/dL (0.1-1.0); PROTEIN TOTAL 6.8 g/dL (6.0-8.3)
[2025-02-21 13:26] VITALS: BP 123/64; PULSE 67; RESP 13; TEMP 37.2; O2SAT 100
[2025-02-22] MEDS ORDERED: CLOP-31 PO (18:41)
[2025-02-22] MEDS ORDERED: SACU1TAB MT (21:12)
[2025-02-22] MEDS ORDERED: HYOS-14 MT (21:33)
[2025-02-22] MEDS ORDERED: CARV6.2548 PO (21:33)
[2025-02-22] MEDS ORDERED: ROSU40TA PO (21:33)
[2025-02-22] MEDS ORDERED: ONDA-241 MT (21:33)
[2025-02-22] MEDS ORDERED: SPIR25TA6 MT (21:33)
== END 2025-02-21 13:53 | disposition home or self-care (01) ==
LOC: ER 10:00 → CANBEDREQ 12:35 → ER 13:53
DX: R10.84 Generalized abdominal pain (principal); F12.10 Cannabis abuse, uncomplicated; I11.0 Hypertensive heart disease with heart failure; I50.9 Heart failure, unspecified; E11.9 Type 2 diabetes mellitus without complications; Z88.1 Allergy status to other antibiotic agents; Z88.0 Allergy status to penicillin; Z79.82 Long term (current) use of aspirin; Z90.49 Acquired absence of other specified parts of digestive tract; Z98.51 Tubal ligation status
CPT/HCPCS: 99285; 74176; 96374; 96361; 96375; 80076; 80048; 83690; 85025; 85610; 84484; 36415; J2405; J2270; J7030

== ENCOUNTER 2025-02-22 09:06 | Inpatient (IN) | payer BC, MEDICAID, MEDICARE ==
[~2025-02-22] VITALS: Ht 162.6 cm; Wt 57.8 kg
[2025-02-22 09:17] VITALS: O2SAT 99
[2025-02-22] MEDS: MORPHINE SULFATE 4 MG/ML INJ (FOR IV/IM USE) IV ONE (09:47)
[2025-02-22] MEDS: ONDANSETRON HCL 4MG/2ML INJ IV ONE (09:47)
[2025-02-22 09:54] LABS: BASOPHILS % 0.8 % (0.0-2.0); EOSINOPHILS % 0.7 % (0.0-5.0); HEMOGLOBIN. 12.6 g/dL (12.0-16.0); LYMPHOCYTES % 11.2 % (20.0-50.0); MEAN CORPUSCULAR HEMOGLOBIN 26.1 pg (28.0-32.0); MEAN CORPUSCULAR HGB CONC 32.3 g/dL (31.0-37.0); MEAN CORPUSCULAR VOLUME 80.9 fL (81.0-99.0); NEUTROPHILS % 84.3 % (40.0-76.0); PLATELET 253 x1000/uL (130-400); RED BLOOD CELL COUNT 4.82 mill/uL (4.2-5.4); RED CELL DISTRIBUTION WIDTH 17.7 % (11.6-14.6); WHITE BLOOD COUNT 12.9 x1000/uL (4.5-11.0)
[2025-02-22 10:14] LABS: CHLORIDE 101 mEq/L (98-107); POTASSIUM 3.8 mEq/L (3.5-5.1); SODIUM 134 mEq/L (136-145)
[2025-02-22 10:15] LABS: CALCIUM 9.4 mg/dL (8.7-10.4); CARBON DIOXIDE 18 mEq/L (21-32)
[2025-02-22 10:20] LABS: GLUCOSE 217 mg/dL (70-105); UREA NITROGEN BLOOD 8 mg/dL (9-23)
[2025-02-22 10:22] LABS: ALANINE AMINOTRANSFERASE 11 IU/L (10-49); ALBUMIN 4.9 g/dL (3.2-4.8); ASPARTATE AMINOTRANSFERASE 16 IU/L (<34); BILIRUBIN DIRECT 0.2 mg/dL (<=3.0); BILIRUBIN TOTAL 0.5 mg/dL (0.1-1.0); PROTEIN TOTAL 7.8 g/dL (6.0-8.3)
[2025-02-22] MEDS: ONDANSETRON HCL 4MG/2ML INJ IM NR (11:45)
[2025-02-22] MEDS: KETOROLAC 15MG/ML VIAL IV NR (11:45)
[2025-02-22] MEDS ORDERED: DOCUSATE SODIUM 100MG CAPSULE PO PRN (13:45)
[2025-02-22] MEDS ORDERED: MAGNESIUM/ALUMINUM HYDROXIDE/SIMETHICONE 30ML UDC PO PRN (13:45)
[2025-02-22] MEDS ORDERED: GUAIFENESIN 200MG/10ML SUGAR FREE UDC PO PRN (13:45)
[2025-02-22] MEDS ORDERED: HALOPERIDOL LACTATE 5MG/ML VIAL IM NR (13:45)
[2025-02-22] MEDS ORDERED: ACETAMINOPHEN 325MG TABLET PO PRN ×2 (13:45→18:00)
[2025-02-22] MEDS ORDERED: IPRATROPIUM/ALBUTEROL 0.5-3(2.5)MG/3ML NEB HHN PRN (13:45)
[2025-02-22] MEDS ORDERED: CLONIDINE 0.1MG TABLET PO PRN (13:45)
[2025-02-22] MEDS: SODIUM CHLORIDE 0.9% 500 ML IV ONE (13:45)
[2025-02-22] MEDS ORDERED: DEXTROSE 50% WATER 50ML SYRINGE IV PRN (13:45)
[2025-02-22] MEDS: ENOXAPARIN 40MG/0.4ML SYR SUBCUT SCH (14:00)
[2025-02-22] MEDS: ACETAMINOPHEN 325MG TABLET PO PRN (14:28)
[2025-02-22] MEDS ORDERED: IOHEXOL-350 100 ML BOTTLE ONE (14:53)
[2025-02-22 14:58] VITALS: BP 142/107; PULSE 94; RESP 20; TEMP 36.3
[2025-02-22 15:52] VITALS: BP 142/102; PULSE 94; RESP 18; TEMP 36.3; O2SAT 100
[2025-02-22 17:24] LABS: CLARITY URINE CLEAR (CLEAR); COLOR URINE YELLOW (YELLOW); GLUCOSE URINE 3+ (NEGATIVE); KETONES URINE 2+ (NEGATIVE); LEUKOCYTE ESTERASE URINE NEGATIVE (NEGATIVE); NITRITE URINE NEGATIVE (NEGATIVE); OCCULT BLOOD URINE 1+ (NEGATIVE); PH URINE 6.5 (4.5-8.0); PROTEIN URINE 1+ (NEGATIVE); UROBILINOGEN URINE 0.2 E.U./dL (0.2-1.0)
[2025-02-22] MEDS: BLOOD SUGAR DIAGNOSTIC STRIP TEST SCH (18:04)
[2025-02-22 18:13] LABS: BACTERIA URINE TRACE; SQUAMOUS EPITHELIAL CELL URINE FEW /lpf (RARE/1+); WBC URINE 0-2 /hpf (0-2)
[2025-02-22] MEDS: PANTOPRAZOLE SODIUM 40 MG/VIAL IV SCH (18:20)
[2025-02-22] MEDS: INSULIN LISPRO 100 UNITS/ML SUBCUT SCH (18:26)
[2025-02-22 18:28] LABS: *AMPHETAMINES SCREEN URINE NEGATIVE (NEGATIVE); *BARBITURATES SCREEN URINE NEGATIVE (NEGATIVE); *BENZODIAZEPINES SCREEN URINE NEGATIVE (NEGATIVE); *COCAINE SCREEN URINE NEGATIVE (NEGATIVE); CANNABINOID URINE SCREEN PRESUMPTIVE POSITIVE (NEGATIVE); ECSTASY MDMA SCREEN URINE NEGATIVE (NEGATIVE); METHADONE URINE SCREEN NEGATIVE (NEGATIVE); OPIATES URINE SCREEN PRESUMPTIVE POSITIVE (NEGATIVE); PHENCYCLIDINE URINE SCREEN NEGATIVE (NEGATIVE)
[2025-02-22] MEDS ORDERED: CLOP-31 PO (18:41)
[2025-02-22 20:00] VITALS: BP 144/81; PULSE 83; RESP 18; TEMP 37; O2SAT 98
[2025-02-22] MEDS: ONDANSETRON HCL 4MG/2ML INJ IV PRN (20:51)
[2025-02-22] MEDS: CARVEDILOL 6.25 MG TABLET PO SCH (20:52)
[2025-02-22] MEDS: ATORVASTATIN CALCIUM 40MG TABLET PO SCH (20:52)
[2025-02-22] MEDS ORDERED: SACU1TAB MT (21:12)
[2025-02-22] MEDS ORDERED: ROSU40TA PO (21:33)
[2025-02-22] MEDS ORDERED: HYOS-14 MT (21:33)
[2025-02-22] MEDS ORDERED: SPIR25TA6 MT (21:33)
[2025-02-22] MEDS ORDERED: ONDA-241 MT (21:33)
[2025-02-22] MEDS ORDERED: CARV6.2548 PO (21:33)
[2025-02-22] MEDS: KETOROLAC 15MG/ML VIAL IV PRN (21:55)
[2025-02-23] VITALS: BP 134/70; PULSE 83; RESP 18; TEMP 37.1; O2SAT 98
[2025-02-23 04:00] VITALS: BP 129/84; PULSE 100; RESP 18; TEMP 36.7; O2SAT 100
[2025-02-23] MEDS ORDERED: *PATIENT'S OWN MEDICATION STORAGE XX SCH (04:00)
[2025-02-23 08:17] VITALS: BP 145/66; PULSE 88; RESP 16; TEMP 37; O2SAT 97
[2025-02-23 08:53] LABS: CHLORIDE 96 mEq/L (98-107); POTASSIUM 3.6 mEq/L (3.5-5.1); SODIUM 130 mEq/L (136-145)
[2025-02-23 08:54] LABS: BASOPHILS % 0.2 % (0.0-2.0); CARBON DIOXIDE 20 mEq/L (21-32); DIFFERENTIAL COMMENT 0; EOSINOPHILS % 0.1 % (0.0-5.0); HEMATOCRIT. 38.5 % (36.0-48.0); HEMOGLOBIN. 12.7 g/dL (12.0-16.0); LYMPHOCYTES % 11.4 % (20.0-50.0); MEAN CORPUSCULAR VOLUME 78.8 fL (81.0-99.0); MEAN PLATELET VOLUME 9.6 fl (7.4-10.4); MONOCYTES % 6.1 % (2.0-8.0); NEUTROPHILS % 82.2 % (40.0-76.0); PLATELET 244 x1000/uL (130-400); RED BLOOD CELL COUNT 4.89 mill/uL (4.2-5.4); RED CELL DISTRIBUTION WIDTH 17.5 % (11.6-14.6); WHITE BLOOD COUNT 16.4 x1000/uL (4.5-11.0)
[2025-02-23 08:55] LABS: CALCIUM 9.7 mg/dL (8.7-10.4)
[2025-02-23 08:59] LABS: CREATININE 0.9 mg/dL (0.6-1.0)
[2025-02-23 09:00] LABS: GLUCOSE 147 mg/dL (70-105); UREA NITROGEN BLOOD 14 mg/dL (9-23)
[2025-02-23] MEDS: SACUBITRIL/VALSARTAN 24MG/26MG TABLET PO SCH (10:14)
[2025-02-23] MEDS: SPIRONOLACTONE 25MG TABLET PO SCH (10:14)
[2025-02-23] MEDS: ASPIRIN 81MG TABLET PO SCH (10:14)
[2025-02-23] MEDS: EMPAGLIFLOZIN 10MG TABLET PO SCH (10:20)
[2025-02-23 12:32] VITALS: BP 133/71; PULSE 91; RESP 18; TEMP 37.1; O2SAT 97
== END 2025-02-23 14:48 | disposition left against medical advice (07) | DRG 872 ==
LOC: ER 09:06 → 7WST 11:09 → EDBEDREQTM 11:11 → EDBEDREQSVC 11:11 → EDBEDREQ 11:11
PROVIDERS: ADMIT Internal Medicine; ATTEND Internal Medicine
DX: A41.9 Sepsis, unspecified organism (principal); N39.0 Urinary tract infection, site not specified; I50.22 Chronic systolic (congestive) heart failure; I70.92 Chronic total occlusion of artery of the extremities; F12.90 Cannabis use, unspecified, uncomplicated; R11.2 Nausea with vomiting, unspecified; E11.65 Type 2 diabetes mellitus with hyperglycemia; F17.210 Nicotine dependence, cigarettes, uncomplicated; F14.90 Cocaine use, unspecified, uncomplicated; I11.0 Hypertensive heart disease with heart failure; I70.8 Atherosclerosis of other arteries; Z53.29 Procedure and treatment not carried out because of patient's decision for other reasons; Z79.82 Long term (current) use of aspirin; Z79.84 Long term (current) use of oral hypoglycemic drugs; Z88.0 Allergy status to penicillin; Z88.1 Allergy status to other antibiotic agents; Z90.49 Acquired absence of other specified parts of digestive tract; I25.2 Old myocardial infarction; Z79.899 Other long term (current) drug therapy
CPT/HCPCS: 36415; 74174; 80048; 80061; 80076; 80305; 81003; 82962; 83605; 84145; 85025; 93005; 99285; J1815; J1885; J2270; J2405; J2470; Q9967

== ENCOUNTER 2025-10-01 01:50 | Inpatient (IN) | payer BC, MEDICAID ==
[~2025-10-01] VITALS: Ht 157.5 cm; Wt 57.4 kg
[~2025-10-01 01:50] MED LIST changes: +CARV6.2548 PO; +CLOP-31 PO; -ERGO1250 PO; -GABA-1180 PO; -LEVO750T68 MT; +ONDA-241 MT; +ROSU40TA PO; +SACU1TAB MT; +SPIR25TA6 MT
[2025-10-01 01:53] VITALS: O2SAT 99
[2025-10-01] MEDS: ONDANSETRON HCL 4MG/2ML INJ IV ONE (02:47)
[2025-10-01] MEDS: ACETAMINOPHEN 1000MG/100ML 100 ML IV ONE (02:48)
[2025-10-01] MEDS: SODIUM CHLORIDE 0.9% 500 ML IV ONE (02:49)
[2025-10-01] MEDS: HYDRALAZINE 20MG/ML VIAL IV ONE (03:04)
[2025-10-01 03:14] LABS: BASOPHILS % 1.1 % (0.0-2.0); EOSINOPHILS % 1.5 % (0.0-5.0); HEMATOCRIT. 37.2 % (36.0-48.0); HEMOGLOBIN. 12.1 g/dL (12.0-16.0); LYMPHOCYTES % 11.8 % (20.0-50.0); MEAN PLATELET VOLUME 9.1 fl (7.4-10.4); MONOCYTES % 3.6 % (2.0-8.0); NEUTROPHILS % 82.0 % (40.0-76.0); PLATELET 270 x1000/uL (130-400); RED BLOOD CELL COUNT 4.83 mill/uL (4.2-5.4); RED CELL DISTRIBUTION WIDTH 17.2 % (11.6-14.6)
[2025-10-01 03:26] LABS: INR 0.9
[2025-10-01 03:28] LABS: CREATININE 1.1 mg/dL (0.6-1.0); UREA NITROGEN BLOOD 9 mg/dL (9-23)
[2025-10-01 03:29] LABS: ETHANOL BLOOD < 10 mg/dL (<10); PROTEIN TOTAL 8.1 g/dL (6.0-8.3); TROPONIN I HIGH SENSITIVITY 6 ng/L (3.0-34)
[2025-10-01 03:30] LABS: ASPARTATE AMINOTRANSFERASE 17 IU/L (<34); BILIRUBIN DIRECT 0.1 mg/dL (<=3.0); BILIRUBIN TOTAL 0.4 mg/dL (0.1-1.0)
[2025-10-01] MEDS: LEVOFLOXACIN 750MG PREMIX 150 ML IV NR (03:46)
[2025-10-01 04:03] LABS: PHOSPHORUS 3.0 mg/dL (2.5-4.9)
[2025-10-01 04:16] LABS: CLARITY URINE CLEAR (CLEAR); COLOR URINE YELLOW (YELLOW); GLUCOSE URINE 1+ (NEGATIVE); KETONES URINE TRACE (NEGATIVE); LEUKOCYTE ESTERASE URINE 1+ (NEGATIVE); NITRITE URINE NEGATIVE (NEGATIVE); OCCULT BLOOD URINE NEGATIVE (NEGATIVE); PH URINE 7.0 (4.5-8.0); PROTEIN URINE NEGATIVE (NEGATIVE); SPECIFIC GRAVITY URINE 1.008 (1.005-1.030); UROBILINOGEN URINE 0.2 E.U./dL (0.2-1.0)
[2025-10-01 04:30] LABS: BACTERIA URINE TRACE; RBC URINE 0-2 /hpf (0-2); SQUAMOUS EPITHELIAL CELL URINE FEW /lpf (RARE/1+)
[2025-10-01 04:38] LABS: *AMPHETAMINES SCREEN URINE NEGATIVE (NEGATIVE); *BARBITURATES SCREEN URINE NEGATIVE (NEGATIVE); *BENZODIAZEPINES SCREEN URINE NEGATIVE (NEGATIVE); *COCAINE SCREEN URINE NEGATIVE (NEGATIVE); CANNABINOID URINE SCREEN PRESUMPTIVE POSITIVE (NEGATIVE); ECSTASY MDMA SCREEN URINE NEGATIVE (NEGATIVE); METHADONE URINE SCREEN NEGATIVE (NEGATIVE); OPIATES URINE SCREEN NEGATIVE (NEGATIVE); PHENCYCLIDINE URINE SCREEN NEGATIVE (NEGATIVE)
[2025-10-01] MEDS: KETOROLAC 15MG/ML VIAL IV NR (04:45)
[2025-10-01] MEDS: IOHEXOL-300 100 ML BOTTLE ONE (04:45)
[2025-10-01] MEDS: VANCOMYCIN 1G PREMIX 200 ML IV NR (07:07)
[2025-10-01] MEDS ORDERED: MORPHINE SULFATE/PF 1 MG/ML 100 MG in BAG 1 EACH IV STA (09:48)
[2025-10-01 10:00] VITALS: BP 15/89; PULSE 100; RESP 18; TEMP 36.5848
[2025-10-01] MEDS ORDERED: OCTREOTIDE ACETATE 50 MCG/ML 1ML IV ONE (10:00)
[2025-10-01] MEDS: MORPHINE SULFATE 2 MG/ML INJ (NOT FOR IM USE) IV NR (10:08)
[2025-10-01] MEDS: SODIUM CHLORIDE 0.9% 1,000 ML IV ONE (10:09)
[2025-10-01] MEDS: PANTOPRAZOLE SODIUM 40 MG/VIAL IV NR (10:16)
[2025-10-01] MEDS ORDERED: NA PHOS,M-B/NA PHOS,DI-BA ENEMA 118ML PR PRN (10:30)
[2025-10-01] MEDS ORDERED: GUAIFENESIN 200MG/10ML SUGAR FREE UDC PO PRN (10:30)
[2025-10-01] MEDS ORDERED: DOCUSATE SODIUM 100MG CAPSULE PO PRN (10:30)
[2025-10-01] MEDS: DEXTROSE 5% WATER 1,000 ML IV SCH (10:30)
[2025-10-01] MEDS ORDERED: CEFTRIAXONE 1GM/50ML 50 ML IV SCH (11:00)
[2025-10-01] MEDS: FUROSEMIDE 40MG/4ML VIAL IVP SCH (11:05)
[2025-10-01] MEDS: ONDANSETRON HCL 4MG/2ML INJ IV PRN (11:16)
[2025-10-01 12:00] VITALS: BP 123/69; PULSE 83; RESP 18; TEMP 36.8; O2SAT 100
[2025-10-01] MEDS: ACETAMINOPHEN 1000MG/100ML 100 ML IV NR (12:03)
[2025-10-01] MEDS ORDERED: DEXTROSE 50% WATER 50ML SYRINGE IV PRN (12:30)
[2025-10-01] MEDS ORDERED: HYDRALAZINE 20MG/ML VIAL IV PRN (12:30)
[2025-10-01] MEDS ORDERED: NALOXONE HCL 0.4MG/ML VIAL IV PRN (13:45)
[2025-10-01] MEDS ORDERED: PANTOPRAZOLE SODIUM 40 MG/VIAL IV SCH (14:00)
[2025-10-01] MEDS: AZTREONAM 1 G in DEXTROSE 5% WATER 50 ML IV SCH (14:23)
[2025-10-01] MEDS: METRONIDAZOLE 500 MG PREMIX 100 ML IV SCH (14:41)
[2025-10-01] MEDS: SPIRONOLACTONE 25MG TABLET PO SCH (14:41)
[2025-10-01] MEDS: EMPAGLIFLOZIN 10MG TABLET PO SCH (14:41)
[2025-10-01 16:00] VITALS: BP 158/96; PULSE 98; RESP 17; TEMP 36.7; O2SAT 98
[2025-10-01] MEDS: MORPHINE SULFATE 2 MG/ML INJ (NOT FOR IM USE) IV PRN ×2 (16:34→18:37)
[2025-10-01] MEDS: BLOOD SUGAR DIAGNOSTIC STRIP TEST SCH (16:45)
[2025-10-01] MEDS: INSULIN LISPRO 100 UNITS/ML SUBCUT SCH (17:00)
[2025-10-01 17:45] VITALS: BP 120/67; PULSE 91; RESP 18; TEMP 36.7; O2SAT 100
[2025-10-01] MEDS: SUCRALFATE 1G TABLET PO SCH (18:36)
[2025-10-01 20:00] VITALS: BP 129/79; PULSE 87; RESP 18; TEMP 36.8; O2SAT 98
[2025-10-01] MEDS: PANTOPRAZOLE SODIUM 40 MG/VIAL IV SCH (22:13)
[2025-10-01] MEDS: SACUBITRIL/VALSARTAN 24MG/26MG TABLET PO SCH (22:15)
[2025-10-01] MEDS: ATORVASTATIN CALCIUM 40MG TABLET PO SCH (22:15)
[2025-10-01] MEDS: CARVEDILOL 6.25 MG TABLET PO SCH (22:15)
[2025-10-01] MEDS: HYDROCODONE/ACETAMINOPHEN 10/325MG TABLET PO PRN (22:16)
[2025-10-01 22:34] LABS: FOLIC ACID (FOLATE) SERUM 18.48 ng/mL (>5.38); VITAMIN B12 SERUM 369 pg/mL (211-911)
[2025-10-01 22:59] LABS: TROPONIN I HIGH SENSITIVITY 1770 ng/L (3.0-34)
[2025-10-02] VITALS: BP 149/54; PULSE 86; RESP 20; TEMP 36.6; O2SAT 95
[2025-10-02 01:52] LABS: TROPONIN I HIGH SENSITIVITY 1628 ng/L (3.0-34)
[2025-10-02 04:00] VITALS: BP 143/95; PULSE 110; RESP 20; TEMP 36.4; O2SAT 98
[2025-10-02] MEDS: ENOXAPARIN 60MG/0.6ML SYR SUBCUT SCH (04:42)
[2025-10-02 08:00] VITALS: BP 135/60; PULSE 70; RESP 20; TEMP 37; O2SAT 98
[2025-10-02] MEDS ORDERED: HYDROMORPHONE HCL/PF 1MG/ML INJ IV SCH (09:00)
[2025-10-02] MEDS: ASPIRIN 81MG TABLET PO SCH (09:00)
[2025-10-02] MEDS ORDERED: BISACODYL 10MG SUPP PR SCH (10:00)
[2025-10-02 11:37] LABS: BASOPHILS % 0.1 % (0.0-2.0); EOSINOPHILS % 0.1 % (0.0-5.0); HEMATOCRIT. 36.2 % (36.0-48.0); HEMOGLOBIN. 11.9 g/dL (12.0-16.0); LYMPHOCYTES % 7.9 % (20.0-50.0); MEAN PLATELET VOLUME 9.1 fl (7.4-10.4); MONOCYTES % 7.9 % (2.0-8.0); NEUTROPHILS % 84.0 % (40.0-76.0); PLATELET 231 x1000/uL (130-400); RED BLOOD CELL COUNT 4.65 mill/uL (4.2-5.4); RED CELL DISTRIBUTION WIDTH 17.4 % (11.6-14.6)
[2025-10-02 11:50] LABS: CREATININE 1.1 mg/dL (0.6-1.0); TRIGLYCERIDE 64 mg/dL (0-150); UREA NITROGEN BLOOD 9 mg/dL (9-23)
[2025-10-02 11:51] LABS: LDL CHOLESTEROL 120 mg/dL (5-100)
[2025-10-02 11:54] LABS: T4 FREE 1.52 ng/dL (0.89-1.76)
[2025-10-02] MEDS: NA PHOS,M-B/NA PHOS,DI-BA ENEMA 118ML PR SCH (11:55)
[2025-10-02 12:00] VITALS: BP 156/70; PULSE 100; RESP 20; TEMP 37; O2SAT 98
[2025-10-02 12:36] LABS: BG BASE EXCESS -5.2 mmol/L (-2.0-3.0); BG CARBOXYHEMOGLOBIN 1.1 % (0.5-1.5); BG DEOXYHEMOGLOBIN 1.8 % (0.0-5.0); BG FRACTION INSPIRED OXYGEN 21; BG HCO3 ACT 14.9 mmol/L (21.0-28.0); BG METHEMOGLOBIN 0.3 % (0.5-1.5); BG OXYGEN SATURATION 98.2 % (94.0-98.0); BG OXYHEMOGLOBIN 96.8 % (94.0-98.0); BG PCO2 17.9 mmHg (32.0-45.0); BG PH 7.538 (7.350-7.450); BG PO2 103.8 mmHg (83.0-108.0); BG SAMPLE SITE RIGHT BRACHIAL; BG TOTAL HEMOGLOBIN 12.8 g/dL (12.0-16.0); BG VENT MODE ROOM AIR
[2025-10-02] MEDS: CAPSAICIN 0.075% CREAM 57GM TOP SCH (13:14)
[2025-10-02] MEDS: POTASSIUM CHLORIDE 20MEQ/PACKET PO NR (13:15)
[2025-10-02] MEDS: DEXT 5%/0.9% NACL 1,000 ML IV SCH (13:16)
[2025-10-02] MEDS: KCL 20MEQ/100ML PREMIX 100 ML IV NR (13:16)
[2025-10-02 16:00] VITALS: BP 136/78; PULSE 96; RESP 18; TEMP 36.6; O2SAT 98
[2025-10-02] MEDS: LORAZEPAM 2MG/ML UD SYRINGE IV NR (16:12)
[2025-10-02] MEDS: MAGNESIUM 4 G PREMIX 100 ML IV NR (18:48)
[2025-10-02 20:00] VITALS: BP 133/86; PULSE 112; RESP 18; TEMP 36.5; O2SAT 99
[2025-10-02] MEDS: SENNOSIDES/DOCUSATE SOD 8.6/50MG TABLET PO SCH (20:54)
[2025-10-02] MEDS: MORPHINE SULFATE 2 MG/ML INJ (NOT FOR IM USE) IV NR (21:00)
[2025-10-03] VITALS: BP 118/67; PULSE 84; RESP 18; TEMP 36.6; O2SAT 100
[2025-10-03 04:00] VITALS: BP 124/61; PULSE 80; RESP 17; TEMP 36.9; O2SAT 97
[2025-10-03 08:02] VITALS: BP 125/65; PULSE 96; RESP 20; TEMP 37.2; O2SAT 100
[2025-10-03] MEDS ORDERED: LORAZEPAM 2MG/ML UD SYRINGE IV PRN (08:30)
[2025-10-03 12:00] VITALS: BP 119/77; PULSE 103; RESP 18; TEMP 36.6
[2025-10-03 16:00] VITALS: BP 132/70; PULSE 89; RESP 18; TEMP 37.1; O2SAT 98
[2025-10-03 19:00] LABS: BASOPHILS % 0.2 % (0.0-2.0); EOSINOPHILS % 0.0 % (0.0-5.0); HEMATOCRIT. 33.6 % (36.0-48.0); HEMOGLOBIN. 10.9 g/dL (12.0-16.0); LYMPHOCYTES % 11.0 % (20.0-50.0); MEAN PLATELET VOLUME 9.3 fl (7.4-10.4); MONOCYTES % 8.1 % (2.0-8.0); NEUTROPHILS % 80.7 % (40.0-76.0); PLATELET 218 x1000/uL (130-400); RED BLOOD CELL COUNT 4.36 mill/uL (4.2-5.4); RED CELL DISTRIBUTION WIDTH 17.5 % (11.6-14.6)
[2025-10-03 19:09] LABS: CREATININE 1.0 mg/dL (0.6-1.0)
[2025-10-03 19:10] LABS: UREA NITROGEN BLOOD 10 mg/dL (9-23)
[2025-10-03 19:17] LABS: TROPONIN I HIGH SENSITIVITY 295 ng/L (3.0-34)
[2025-10-03 20:28] VITALS: BP 151/79; PULSE 97; RESP 20; TEMP 36.4; O2SAT 100
[2025-10-03] MEDS: KCL 20MEQ/100ML PREMIX 100 ML IV SCH (20:45)
[2025-10-04] VITALS: BP 124/66; PULSE 79; RESP 19; TEMP 36.7; O2SAT 100
[2025-10-04 04:00] VITALS: BP 138/70; PULSE 74; RESP 17; TEMP 36.6; O2SAT 100
[2025-10-04 07:23] LABS: CREATININE 0.8 mg/dL (0.6-1.0)
[2025-10-04 07:24] LABS: BASOPHILS % 0.2 % (0.0-2.0); EOSINOPHILS % 0.1 % (0.0-5.0); HEMATOCRIT. 33.3 % (36.0-48.0); HEMOGLOBIN. 10.8 g/dL (12.0-16.0); LYMPHOCYTES % 14.9 % (20.0-50.0); MEAN PLATELET VOLUME 9.6 fl (7.4-10.4); MONOCYTES % 7.9 % (2.0-8.0); NEUTROPHILS % 76.9 % (40.0-76.0); PLATELET 188 x1000/uL (130-400); PROTEIN TOTAL 5.9 g/dL (6.0-8.3); RED BLOOD CELL COUNT 4.28 mill/uL (4.2-5.4); RED CELL DISTRIBUTION WIDTH 17.4 % (11.6-14.6); UREA NITROGEN BLOOD 8 mg/dL (9-23)
[2025-10-04 07:25] LABS: ASPARTATE AMINOTRANSFERASE 18 IU/L (<34)
[2025-10-04 07:26] LABS: BILIRUBIN DIRECT 0.2 mg/dL (<=3.0); BILIRUBIN TOTAL 0.7 mg/dL (0.1-1.0); PHOSPHORUS 2.1 mg/dL (2.5-4.9)
[2025-10-04 08:00] VITALS: BP 136/72; PULSE 83; RESP 16; TEMP 36.1; O2SAT 96
[2025-10-04 12:00] VITALS: BP 134/68; PULSE 75; RESP 17; TEMP 37.1; O2SAT 96
[2025-10-04 12:21] VITALS: BP 134/68; PULSE 75; RESP 17; TEMP 98.8
== END 2025-10-04 13:30 | disposition home or self-care (01) | DRG 377 ==
LOC: ER 02:28 → MICUSO 04:38 → EDBEDREQTM 04:41 → EDBEDREQ 04:41 → 7WST 17:47
PROVIDERS: ADMIT Internal Medicine; ATTEND Internal Medicine
DX: K26.4 Chronic or unspecified duodenal ulcer with hemorrhage (principal); I21.4 Non-ST elevation (NSTEMI) myocardial infarction; E87.20 Acidosis, unspecified; E87.1 Hypo-osmolality and hyponatremia; I50.20 Unspecified systolic (congestive) heart failure; I51.81 Takotsubo syndrome; K83.8 Other specified diseases of biliary tract; N39.0 Urinary tract infection, site not specified; N17.9 Acute kidney failure, unspecified; K25.4 Chronic or unspecified gastric ulcer with hemorrhage; Z79.02 Long term (current) use of antithrombotics/antiplatelets; I11.0 Hypertensive heart disease with heart failure; E11.43 Type 2 diabetes mellitus with diabetic autonomic (poly)neuropathy; K31.84 Gastroparesis; K56.41 Fecal impaction; I25.10 Atherosclerotic heart disease of native coronary artery without angina pectoris; F12.90 Cannabis use, unspecified, uncomplicated; F17.210 Nicotine dependence, cigarettes, uncomplicated; Z90.49 Acquired absence of other specified parts of digestive tract; Z79.82 Long term (current) use of aspirin; Z79.84 Long term (current) use of oral hypoglycemic drugs; Z86.19 Personal history of other infectious and parasitic diseases; Z88.0 Allergy status to penicillin; Z88.1 Allergy status to other antibiotic agents
CPT/HCPCS: 36415; 36600; 71045; 74177; 80048; 80061; 80076; 80305; 80320; 81003; 82270; 82375; 82550; 82607; 82746; 82805; 82962; 83036; 83605; 83735; 83880; 84100; 84439; 84443; 84484; 85014; 85018; 85025; 85044; 85379; 86850; 86900; 93005; 93306; 93970; 96365; 96375; 97162; 97166; 99291; A4615; J0360; J1650; J1815; J1885; J1938; J1956; J2060; J2270; J2405; J2470; J3373; J3475; J3480; J3490; J7040; J7042; J7060; J7070; Q9967; G0480; J0131